=== PATIENT | male | born 1940 | race Caucasian/White ===

== ENCOUNTER 2018-12-29 11:43 | Emergency (ER) | payer MEDICARE, OTHER | END 2018-12-29 13:10 | disposition home or self-care (01) | LOC: MADERS 11:43 | DX: L30.9 Dermatitis, unspecified (principal); I10 Essential (primary) hypertension; Z79.899 Other long term (current) drug therapy; Z79.82 Long term (current) use of aspirin | CPT/HCPCS: 99282 ==

== ENCOUNTER 2019-02-14 18:40 | Emergency (ER) | payer MEDICARE, OTHER ==
[2019-02-14 19:22] LABS: Bilirubin Small (Negative); Blood, Urine Large (Negative); Clarity Cloudy (Clear); Glucose, Urine (Dipstick) Negative (Negative); Leukocyte Negative (Negative); Nitrite Negative (Negative); Protein, Urine (Dipstick) > or equal to 300 mg/dL (Neg-Trace); Urobilinogen 0.2 mg/dL (Less than 2)
[2019-02-14 19:28] LABS: RBC/HPF Greater than 50 HPF (0-3)
[2019-02-14 19:30] LABS: WBC/HPF 0-3 HPF (0-3)
[2019-02-14 19:31] LABS: Bacteria/HPF Rare-Few HPF (None Seen)
--- NOTE | 2019-02-14 19:34 | CT ---
CT OF THE ABDOMEN AND PELVIS WITHOUT IV CONTRAST INDICATION: Abdominal Pain COMPARISON: None FINDINGS: The lack of IV contrast limits evaluation of the solid organs of the abdomen and pelvis. ABDOMEN: Lung bases: Calcified granuloma right lower lobe Liver: Tiny hypodensity within the right hepatic lobe on image 22 series 2 cannot be further ángelacte amol. Gallbladder: Normal appearing. Pancreas: Normal. Adrenal glands: Normal. Spleen: Normal. Kidneys: There is mild right hydronephrosis. There is a 4.5 x 5.5 mm stone at the level of the L4 freya tebra. There are tiny punctate stones involving the left kidney. No hydronephrosis is evident. No ureteral calculus is noted. Retroperitoneum of the upper abdomen: No lymphadenopathy or free fluid is identified. Additional findings: None. Pelvis: Small and large bowel: Scattered colonic diverticula. Small bowel is of normal caliber. Bladder: Normal. Rectal and perirectal soft tissues:Normal. Reproductive structures: Normal. Free fluid in pelvis: No free fluid is evident. Lymphadenopathy pelvis: No lymphadenopathy is evident. Osseous structures: Right total hip prosthesis. Mild levoscoliosis of lumbar spine. There is scattere d degenerative and osteoarthritic change present. IMPRESSION: 1. 4.5 x 5.5 mm mid to distal right ureteral calculus with mild right hydronephrosis. 2. Left nephrolithiasis 3. Findings prior granulomatous disease 4. Small hypodensity within the right hepatic lobe cannot be further characterized. Follow-up abdomin al ultrasound may be helpful for additional characterization.
[2019-02-14 19:42] LABS: #Basophils 0.1 thou/uL (0.0-0.2); #Eosinphils 0.1 thou/uL (0.0-0.7); #Lymphocytes 2.6 thou/uL (1.20-3.40); #Monocytes 0.8 thou/uL (0.11-0.59); #Neutrophils 10.7 thou/uL (1.40-6.50); %Basophils 0.5 % (0.0-1.0); %Eosinophils 0.7 % (0.0-10.0); %Lymphocytes 17.9 % (21.0-51.0); %Monocytes 5.7 % (0.0-10.0); %Neutrophils 75.2 % (42.0-75.0); Hemoglobin 14.2 g/dL (14.0-18.0); Mean Corpuscular HGB CONC 31.4 g/dL (32.0-36.0); Mean Corpuscular Hemoglobin 29.1 pg (27.0-31.0); Mean Corpuscular Volume 92.7 fL (78.0-98.0); Mean Platelet Volume 9.8 fL (7.4-10.4); Platelet Count 131 thou/uL (130-400); RBC Distribution Width 14.3 % (11.5-14.5); Red Blood Cell (RBC) Count 4.89 mill/uL (4.70-6.10); White Blood Cell (WBC) Count 14.3 thou/uL (4.8-10.8)
[2019-02-14 19:59] LABS: ALT (SGPT) 21 U/L (8-55); AST (SGOT) 25 U/L (5-34); Albumin 4.1 g/dL (3.4-4.8); Alkaline Phosphatase 133 U/L (40-150); Anion Gap 14 mmol/L (10-20); BUN (Urea Nitrogen) 27 mg/dL (8.4-25.7); Bilirubin, Total 0.6 mg/dL (0.2-1.2); Calc. Creatinine Clearance 0 mL/min (70-130); Calcium 9.2 mg/dL (7.8-10.44); Carbon Dioxide 29 mmol/L (23-31); Chloride 104 mmol/L (98-107); Estimated GFR-MDRD 47; Globulin 2.6 g/dL (2.4-3.5); Glucose 121 mg/dL (83-110); Lipase 24 U/L (8-78); Potassium 3.8 mmol/L (3.5-5.1); Protein, Total 6.7 g/dL (5.8-8.1); Sodium 143 mmol/L (136-145)
[2019-02-14] MEDS ORDERED: Ketorolac Tromethamine 30 MG/ML VIAL ONE (20:49)
== END 2019-02-14 21:04 | disposition home or self-care (01) ==
LOC: MADERS 18:40
DX: N13.2 Hydronephrosis with renal and ureteral calculous obstruction (principal); I10 Essential (primary) hypertension; Z79.82 Long term (current) use of aspirin; Z79.899 Other long term (current) drug therapy
CPT/HCPCS: 36415; 74176; 80053; 81003; 81015; 83605; 83690; 85025; 96372; J1885

== ENCOUNTER 2023-01-05 09:57 | Emergency (ER) | payer MEDICARE, OTHER | END 2023-01-05 11:03 | disposition home or self-care (01) | LOC: MADERS 09:57 | DX: L03.211 Cellulitis of face (principal); I10 Essential (primary) hypertension; I25.10 Atherosclerotic heart disease of native coronary artery without angina pectoris; E78.00 Pure hypercholesterolemia, unspecified; Z79.82 Long term (current) use of aspirin; Z79.899 Other long term (current) drug therapy | CPT/HCPCS: 99283 ==